=== PATIENT | female | born 1965 | race Caucasian/White ===

== ENCOUNTER 2017-08-08 07:06 | Day surgery (SDC) | payer OTHER ==
[~2017-08-08] VITALS: Ht 162.6 cm; Wt 111.1 kg
[~2017-08-08 07:06] MED LIST: CLARITIN10 MG PO; IRON PO; MAGNESIUM250 MG PO; ZANTAC150 MG PO; [UNRECOGNIZED DRUG - OTHER] PO
[2017-08-08 07:44] VITALS: BP 135/62
[2017-08-08 10:58] VITALS: BP 126/60
[2017-08-08 11:42] VITALS: BP 112/56
== END 2017-08-08 12:00 | disposition home or self-care (01) ==
LOC: SDC 07:06
DX: N84.0 Polyp of corpus uteri (principal); N95.0 Postmenopausal bleeding
CPT/HCPCS: 88305; J1100; J1885; J2405; J3010